=== PATIENT | female | born 1955 | race Asian ===

== ENCOUNTER 2024-01-24 13:29 | Observation (INO) | payer BC ==
[2024-01-24 15:08] LABS: BASO % 0.6 % (0-2.0); EOS % 0.2 % (0-4.5); HEMATOCRIT 41.4 % (32.4-45.2); HEMOGLOBIN 12.9 GM/dL (10.7-15.3); LYMPH % 9.6 % (8-40); MCH 20.2 pg (25.7-33.7); MCHC 31.1 g/dl (32.0-36.0); MEAN CELL VOLUME 65.1 fl (80-96); MEAN PLT VOLUME 8.8 fl (7.5-11.1); MONO % 4.8 % (3.8-10.2); NEUT % 84.8 % (42.8-82.8); PLATELET COUNT 311 10^3/uL (134-434); RBC 6.36 M/mm3 (3.60-5.2); RDW 16.4 % (11.6-15.6); WHITE BLOOD COUNT 16.4 K/mm3 (4.0-10.0)
[2024-01-24] MEDS: SODIUM CHLORIDE 0.9% 1000 ML INFUS.BAG IV ONE (15:12)
[2024-01-24 15:22] LABS: INR 1.01 (0.83-1.09); PROTHROMBIN TIME (PATIENT) 11.4 SEC (9.7-13.0)
[2024-01-24 15:35] LABS: ALBUMIN 3.8 g/dl (3.4-5.0); BLOOD UREA NITROGEN 15.7 mg/dL (7-18); MAGNESIUM 2.3 mg/dL (1.8-2.4)
[2024-01-24 15:36] LABS: POTASSIUM 4.1 mmol/L (3.5-5.1)
[2024-01-24 15:38] LABS: CREATININE 1.3 mg/dL (0.55-1.3)
[2024-01-24 15:40] LABS: ANISOCYTOSIS 2+; BILIRUBIN,TOTAL 1.4 mg/dL (0.2-1); TOT PROT 7.7 g/dl (6.4-8.2)
[2024-01-24] MEDS: SODIUM CHLORIDE 500 ML IV STA (19:11)
[2024-01-24] MEDS ORDERED: ENOXAPARIN NA (PORCINE) 40 MG/0.4 ML DISP.SYRIN SQ ONE (19:27)
[2024-01-24] MEDS: ENOXAPARIN NA (PORCINE) 40 MG/0.4 ML DISP.SYRIN SQ SCH (19:35)
[2024-01-24] MEDS: SODIUM CHLORIDE 1,000 ML IV SCH (21:15)
[2024-01-25 04:58] VITALS: BMI 34.0
[2024-01-25 06:20] VITALS: TEMP 98.2
[2024-01-25 08:53] LABS: BASO % 0.5 % (0-2.0); EOS % 2.4 % (0-4.5); HEMATOCRIT 37.4 % (32.4-45.2); HEMOGLOBIN 11.4 GM/dL (10.7-15.3); LYMPH % 20.9 % (8-40); MCH 20.2 pg (25.7-33.7); MCHC 30.5 g/dl (32.0-36.0); MEAN CELL VOLUME 66.1 fl (80-96); MEAN PLT VOLUME 8.4 fl (7.5-11.1); MONO % 7.1 % (3.8-10.2); NEUT % 69.1 % (42.8-82.8); PLATELET COUNT 240 10^3/uL (134-434); RBC 5.65 M/mm3 (3.60-5.2); WHITE BLOOD COUNT 10.2 K/mm3 (4.0-10.0)
[2024-01-25 08:59] LABS: PH,URINE 6.5 (5.0-8.0); URINE BILIRUBIN NEGATIVE (NEGATIVE); URINE COLOR YELLOW; URINE GLUCOSE (UA) NEGATIVE (NEGATIVE); URINE KETONE NEGATIVE (NEGATIVE); URINE LEUK ESTERASE NEGATIVE (NEGATIVE); URINE NITRITE NEGATIVE (NEGATIVE); URINE PROTEIN NEGATIVE (NEGATIVE); URINE UROBILINOGEN 0.2 mg/dL (0.2-1.0)
[2024-01-25 09:02] LABS: URINE APPEARANCE CLEAR
[2024-01-25 09:12] LABS: POTASSIUM 3.9 mmol/L (3.5-5.1)
[2024-01-25 09:14] LABS: BLOOD UREA NITROGEN 13.5 mg/dL (7-18)
[2024-01-25 09:15] LABS: CALCIUM 8.6 mg/dL (8.5-10.1)
[2024-01-25 09:16] LABS: ALBUMIN 3.2 g/dl (3.4-5.0)
[2024-01-25 09:18] LABS: CREATININE 0.7 mg/dL (0.55-1.3)
[2024-01-25 09:19] LABS: BILIRUBIN,TOTAL 1.2 mg/dL (0.2-1)
[2024-01-25 09:20] LABS: TOT PROT 6.6 g/dl (6.4-8.2)
[2024-01-25] MEDS: LETROZOLE 2.5 MG TABLET (FP) PO SCH (11:27)
[2024-01-25] MEDS: guaiFENesin 600 MG TABLET.ER (FP) PO SCH (11:28)
[2024-01-25 14:22] VITALS: BP 136/63
[2024-01-25 14:45] VITALS: PULSE 75; RESP 18
== END 2024-01-25 18:56 | disposition home or self-care (01) ==
LOC: JER 13:29 → JERBED 16:59 → J4S 19:58
PROVIDERS: ADMIT Internal Medicine; ATTEND Internal Medicine
PROC: 3E023GC Introduction of Other Therapeutic Substance into Muscle, Percutaneous Approach (ICD-10-PCS; principal; 2024-01-24)
PROC: 3E0337Z Introduction of Electrolytic and Water Balance Substance into Peripheral Vein, Percutaneous Approach (ICD-10-PCS; 2024-01-24)
DX: R55 Syncope and collapse (principal); I95.9 Hypotension, unspecified; R73.03 Prediabetes; Z85.3 Personal history of malignant neoplasm of breast; Z90.10 Acquired absence of unspecified breast and nipple; E66.1 Drug-induced obesity
CPT/HCPCS: 0241U-QW; 36415; 71045-TC-FY; 80053; 80061; 81003; 82728; 82962; 83036; 83540; 83550; 83735; 84484; 85025; 85610; 85730; 87086; 87651; 93005; 93010; 99285-25; G0378